=== PATIENT | male | born 1990 | race Caucasian/White ===

== ENCOUNTER 2018-04-18 06:27 | Emergency (ER) | payer OTHER ==
[~2018-04-18] VITALS: Ht 188 cm; Wt 81.9 kg
[~2018-04-18 06:27] MED LIST: DEXTROAMP-AMPHE30 MG PO; FLEXERIL10 MG PO; MOTRIN600 MG PO; MOTRIN800 MG PO; NOHOMEMEDS; NORCO 5/3251 TABLET PO; PREDNISONE10 MG PO; SOMA250 MG PO
[2018-04-18] MEDS ORDERED: FLEXERIL10 MG PO (06:57)
[2018-04-18] MEDS ORDERED: NAPROSYN500 MG PO (06:57)
[2018-04-18 07:13] VITALS: BP 141/100
== END 2018-04-18 07:18 | disposition home or self-care (01) ==
LOC: EME → EDBD 06:27 → EME 06:27
DX: R51 Headache (principal); S16.1XXA Strain of muscle, fascia and tendon at neck level, initial encounter; V49.40XA Driver injured in collision with unspecified motor vehicles in traffic accident, initial encounter; Y92.410 Unspecified street and highway as the place of occurrence of the external cause
CPT/HCPCS: 99281; 99283